=== PATIENT | female | born 1945 | race Caucasian/White ===

== ENCOUNTER 2017-01-13 04:04 | Inpatient (IN) ==
[2017-01-08 15:06] LABS: MANUAL DIFF NEEDED? NO
[2017-01-08 15:10] LABS: EOS% 2.7 % (0.0-10.0); HEMOGLOBIN 10.9 g/dL (12.0-16.0); LYMPH# 2.26 X1000 (1.2-3.4); LYMPH% 30.7 % (20.5-51.1); MCH 30.7 PG (27-31); MCHC 32.1 g/dL (33-37); MCV 95.8 FL (81-99); MONO# 0.76 X1000 (0.11-0.59); MONO% 10.3 % (1.7-9.3); MPV 8.4 FL (7.4-10.4); NEUT% 55.3 % (42.2-75.2); PLT 300 X1000 (130-400); RBC 3.55 XMIL (4.2-5.4)
[2017-01-08 15:46] LABS: AGAP 14; BUN 15 mg/dL (8-22); CALCIUM 8.4 mg/dL (8.8-10.2); CHLORIDE 99 mmol/L (98-107); COSMO 273; POTASSIUM 4.3 mmol/L (3.5-5.1); SODIUM 137 mmol/L (136-145); TCO2 24 mmol/L (25-35)
[2017-01-13] MEDS ORDERED: REGLAN ONE (05:41)
[2017-01-13] MEDS ORDERED: PEPCID ONE (05:41)
[2017-01-13] MEDS ORDERED: INVANZ 1 GM/NS 1 GM/50 ML IVPB ONE (05:42)
[2017-01-13] MEDS ORDERED: LR 1,000 ML ONE ×2 (05:42→10:23)
[2017-01-13] MEDS ORDERED: ENTEREG ONE (05:43)
[2017-01-13 08:14] LABS: URINE SOURCE CATH
[2017-01-13 08:18] LABS: BILIRUBIN URINE NEGATIVE (NEGATIVE); BLOOD URINE NEGATIVE (NEGATIVE); COLOR YELLOW; GLUCOSE URINE NEGATIVE (NEGATIVE); LEUKOCYTES URINE NEGATIVE (NEGATIVE); NITRITE URINE NEGATIVE (NEGATIVE); PH URINE 5.5; PROTEIN URINE NEGATIVE (NEGATIVE); SP GRAVITY URINE 1.015; TURBIDITY URINE HAZY (CLEAR); URINE MICRO REVIEW NEEDED? YES; UROBILINOGEN URINE NORMAL (NORMAL)
[2017-01-13 08:32] LABS: UR EPITHELIAL CELLS <10 /HPF (<10); URINE BACTERIA NEGATIVE /HPF; URINE RBC <10 /HPF (<10); URINE WBC <10 /HPF (<10)
[2017-01-13 08:57] LABS: URINE CASTS NONE SEEN
[2017-01-13] MEDS ORDERED: MORPHINE ONE ×2 (09:44→10:22)
[2017-01-13] MEDS ORDERED: DIPRIVAN 1% ONE (09:44)
[2017-01-13] MEDS: MORPHINE ONE ×2 (10:00→10:10)
[2017-01-13] MEDS ORDERED: D5 1/2 NS + KCL 20 MEQ 1,000 ML ONE (10:03)
[2017-01-13] MEDS ORDERED: TORADOL ONE (10:08)
[2017-01-13] MEDS ORDERED: QUELICIN (DOSE) ONE (10:23)
[2017-01-13] MEDS ORDERED: ZEMURON ONE (10:23)
[2017-01-13] MEDS ORDERED: XYLOCAINE-MPF 2% ONE (10:23)
[2017-01-13] MEDS ORDERED: ZOFRAN ONE (10:23)
[2017-01-13] MEDS ORDERED: DECADRON ONE (10:23)
[2017-01-13] MEDS ORDERED: NEOSTIGMINE ONE (10:23)
[2017-01-13] MEDS ORDERED: ROBINUL ONE (10:23)
[2017-01-13] MEDS ORDERED: OFIRMEV 1000 MG/ISOTONIC SOLN 1,000 MG/100 ML BOTTLE ONE (10:23)
[2017-01-13] MEDS ORDERED: ZOFRAN IV PRN (10:54)
[2017-01-13] MEDS ORDERED: MORPHINE IV PRN (10:54)
[2017-01-13] MEDS: D5 1/2 NS + KCL 20 MEQ 1,000 ML IV SCH ×2 (11:21→23:30)
[2017-01-13] MEDS ORDERED: PNEUMOVAX 23 IM ONE (11:30)
[2017-01-13] MEDS ORDERED: PRILOSEC PO PRN (11:45)
--- NOTE | 2017-01-13 12:58 | OPERATIVE NOTE ---
PROCEDURE DATE: 01/13/2017 PREOPERATIVE DIAGNOSIS: Colonic mass. POSTOPERATIVE DIAGNOSIS: Colonic mass. PRINCIPAL PROCEDURE: Open low anterior colon resection. SURGEON: Sammie John MD MARKETING PRODUCTION SPECIALIST: Jesus Gonzalez MD ANESTHESIA: General. ESTIMATED BLOOD LOSS: 100 mL. DRAINS: None. INDICATIONS: Ms Fatmata Garcia is a 71-year-old white female who has a history of ovarian cancer and has undergone surgery. She has known recurrence, has been treated by Татьяна Tobin, on p.o. tamoxifen without progression of disease. Most recently, she underwent a colonoscopy, which documented a near obstructing possible extrinsic mass at 40 cm from the anus. Resection was recommended. FINDINGS: She had a mass at about the mid sigmoid colon. The sigmoid colon was adhered to itself deep in the pelvis. We were able to mobilize it. We did take part of the proximal rectum and the sigmoid colon and performed an end-to-end EEA stapled anastomosis between the descending colon and the proximal rectum. We did not have to mobilize the splenic flexure. There was no tension on our anastomosis. There was no other evidence of disease intra-abdominally. DESCRIPTION OF PROCEDURE: The patient underwent a bowel prep prior to her presentation. On the day of surgery, she received IV Invanz. She took p.o. antibiotics with her bowel prep. She was taken to surgery, where she received general anesthesia, and was intubated. A Mobley catheter tube was placed. Her abdomen was prepped and draped within a sterile field and we used an Ioban on the skin. She had a previous midline incision and she also had mesh within this incision from previous ventral hernia repair. We excised the scar with a 10 blade scalpel. We then carefully entered the abdomen. We used a large wound protector. The patient was placed in Trendelenburg and we explored the abdomen and packed the small bowel and cecum out into the upper abdomen so that we could evaluate the pelvis. Her sigmoid colon was turned on itself and scarred to the pelvis and rectum. We had to take our time to mobilize the sigmoid colon and rectum out of the pelvis. We used the cautery for lot of this dissection. We began by mobilizing the sigmoid colon laterally and then we mobilized it anteriorly bringing the bladder up off of the rectum. We were able to carefully with adhesions and the cautery, transecting adhesions with cautery, we were able to bring the specimen up into our wound. We used the 45 mm in length blue load TA stapler to come across the proximal rectum. We then took the mesentery blood supply from distal to proximal, which included the sigmoid vessels. We took these vessels at their base. We chose a spot on the descending colon and we used a pursestring instrument to place a pursestring at the descending colon and transected the bowel with a Reed scissor. The specimen was removed from the field. We visualized the left ureter and preserved it. We used a medium or 27 mm EEA stapler. We placed the anvil in the descending colon and tied the pursestring around it. I went below, Dr. Gonzalez was intra-abdominally, and I placed the EEA into the rectal stump after we had cleaned off some of the fat around the staple line using cautery and we mated the anvil to the EEA stapler, brought the 2 together and fired the EEA stapler. We had 2 complete donuts. I then placed the rigid proctoscope into the rectum and blew air past our anastomosis while the pelvis was filled with warm irrigation and there was no evidence of leak. I put 2 stay stitches on either corner of our anastomosis. There was no tension on our anastomosis. The caliber of it was good and we felt the blood supply was good. There was no evidence of ongoing bleeding. We placed the bowel back in anatomically correct position. She had no greater omentum from her previous surgery. We chose to close the midline with a running #1 Prolene stitch because of the mesh that we cut through to open her abdomen. We closed the skin with a skin clip voice network engineer. Xeroform, followed by dry dressing was applied. Dr. Gonzalez was present throughout the case. He knows this family well and has been their surgeon in the past. His presence was necessary for exposure and also the EEA stapled anastomosis as described above. Plans are for her to go to the recovery room and then to the floor. I spoke with her family afterwards. cc: MD Татьяна Cordova MD Manish Arora, MD
[2017-01-13] MEDS: TORADOL IV SCH ×2 (15:23→20:39)
[2017-01-13] MEDS: PERIDEX MT SCH ×2 (15:23→20:38)
[2017-01-13] MEDS: OFIRMEV 1000 MG/ISOTONIC SOLN 1,000 MG/100 ML BOTTLE IV SCH ×2 (17:03→23:30)
[2017-01-13] MEDS: MULTAQ PO SCH (20:38)
[2017-01-13] MEDS: PRAVACHOL PO SCH (20:38)
[2017-01-13] MEDS: COREG PO SCH (20:38)
[2017-01-14] MEDS: TORADOL IV SCH ×3 (04:30→09:18)
[2017-01-14] MEDS: LOVENOX SUBQ SCH (05:53)
[2017-01-14] MEDS: SYNTHROID PO SCH ×2 (05:53→08:21)
[2017-01-14] MEDS: OFIRMEV 1000 MG/ISOTONIC SOLN 1,000 MG/100 ML BOTTLE IV SCH ×4 (05:53→22:25)
[2017-01-14] MEDS: MULTAQ PO SCH ×2 (08:30→20:14)
[2017-01-14] MEDS: COREG PO SCH ×3 (08:30→20:14)
[2017-01-14] MEDS: ENTEREG PO SCH ×2 (08:31→20:13)
[2017-01-14] MEDS: PERIDEX MT SCH ×2 (09:18→20:13)
[2017-01-14] MEDS: D5 1/2 NS + KCL 20 MEQ 1,000 ML IV SCH (12:51)
--- NOTE | 2017-01-14 16:05 | PROGRESS NOTE ---
DATE: 01/14/2017 SUBJECTIVE: Ms. Fatmata Garcia is now postop day 1 from an open low anterior colon resection for near obstruction of her colon. There is a question whether this is ovarian cancer or a colon cancer. She is doing quite well. She is awake, she has been up. Her abdomen is soft. She still has a dressing in place. We have given her clear liquids already. She still has a Mobley catheter tube in place. Hemodynamically, she is satisfactory. PLAN: We will keep her on clear liquids for now. She is getting IV fluids. We will discontinue her Mobley tomorrow and continue to increase her activity. cc: Sammie John MD
[2017-01-14] MEDS: NORCO-5 PO PRN (20:13)
[2017-01-14] MEDS: PRAVACHOL PO SCH (20:14)
[2017-01-15] MEDS: D5 1/2 NS + KCL 20 MEQ 1,000 ML IV SCH (01:39)
[2017-01-15] MEDS: OFIRMEV 1000 MG/ISOTONIC SOLN 1,000 MG/100 ML BOTTLE IV SCH ×4 (06:02→20:40)
[2017-01-15] MEDS: SYNTHROID PO SCH (06:03)
[2017-01-15] MEDS: NORCO-5 PO PRN ×2 (06:03→20:40)
[2017-01-15] MEDS: LOVENOX SUBQ SCH (06:03)
[2017-01-15] MEDS: COREG PO SCH ×2 (08:45→20:40)
[2017-01-15] MEDS: ENTEREG PO SCH (08:45)
[2017-01-15] MEDS: MULTAQ PO SCH ×2 (08:45→20:40)
[2017-01-15] MEDS: PERIDEX MT SCH ×2 (08:55→20:40)
--- NOTE | 2017-01-15 11:57 | PROGRESS NOTE ---
DATE: 01/15/2017 Ms. Garcia is now postop day 2 from a low anterior colon resection. She is doing quite well. She is sitting up in a chair. She is tolerating liquids. We removed her Mobley catheter tube this morning. Her incision remains dressed. She has even had a bowel movement. We will advance her diet to a regular diet. We will stop Entereg. We will continue IV fluids. cc: Smamie John MD
[2017-01-15] MEDS: PRAVACHOL PO SCH (20:40)
[2017-01-16] MEDS: OFIRMEV 1000 MG/ISOTONIC SOLN 1,000 MG/100 ML BOTTLE IV SCH ×2 (03:28→06:10)
[2017-01-16] MEDS: D5 1/2 NS + KCL 20 MEQ 1,000 ML IV SCH (03:40)
[2017-01-16] MEDS: LOVENOX SUBQ SCH (06:10)
[2017-01-16] MEDS: SYNTHROID PO SCH (06:10)
[2017-01-16 07:35] VITALS: BP 132/58
[2017-01-16] MEDS: COREG PO SCH (09:47)
[2017-01-16] MEDS: PERIDEX MT SCH (09:47)
[2017-01-16] MEDS: MULTAQ PO SCH (09:47)
--- NOTE | 2017-01-16 11:51 | DISCHARGE SUMMARY ---
ADMISSION DATE: 01/13/2017 DISCHARGE DATE: 01/16/2017 ADMITTING DIAGNOSIS: Near obstructing lesion sigmoid colon. POSTOPERATIVE DIAGNOSIS: Sigmoid colon mass. PRINCIPAL PROCEDURE: Open low anterior colon resection on 01/13/2017. DISCHARGE DISABILITIES: Full. DISCHARGE DISPOSITION: She will return to see us in our outpatient offices next week. DISCHARGE DIET: Regular. DISCHARGE MEDICATIONS: She is to return to her home medications which includes Xarelto. HOSPITAL COURSE: Ms. Fatmata Garcia is a 71-year-old white female who has known ovarian cancer and has been operated on in the past for this disease. She has been followed by a Dr. Татьяна Tobin. Most recently, she underwent a colonoscopy per Dr. Leggett which documented a near obstructing lesion in her sigmoid colon and diverticulosis. We were asked to evaluate her for colon resection. FINDINGS: She had a colonic mass in the distal sigmoid colon and she also had her sigmoid and rectum kink on itself and scarred into the pelvis. She had previous LDR NURSE oncology surgery for ovarian cancer which included removal of her omentum and also a lymph node dissection along the distal aorta. We performed a low anterior colon resection with an end-to-end stapled anastomosis between the descending colon and the rectum. DESCRIPTION OF PROCEDURE: The patient underwent a bowel prep prior to her presentation on the day of surgery. The bowel prep included oral antibiotics but she also got IV Invanz prior to surgery. She went to the operating room, where she was placed in [facility]. After receiving general anesthesia. We did place a Mobley catheter tube. Her abdomen was prepped and draped within a sterile field. We used an Ioban on the skin. We made an incision in the previous scar and we felt the operation went well. We did perform an EEA stapled anastomosis between the descending colon and the rectum. No drains were left. We did not use an NG tube and after surgery she went to the recovery room with Mobley catheter tube in place. She was then admitted to the [address] [place] [address]. We were able to quickly start her on clear liquids. On postop day 2, in the morning, we removed her Mobley catheter tube. She was able to void without problems. She was able to move around in her room. Her lower midline incision was intact. Her abdomen was soft. She was tolerating a diet and it was felt on postop day 3, it was safe to discharge her home under the care of her with followup in our outpatient offices next week. At discharge, her heart rate was 5,2 blood pressure 132/58. O2 saturation 100%. She was afebrile on no antibiotics. We will allow her to restart her Xarelto at home and she knows to contact us with any problems. cc: Sammie John MD
== END 2017-01-16 11:15 | disposition home or self-care (01) ==
LOC: SURHOLD 04:04 → 4N 09:54
PROVIDERS: ADMIT Surgery; ATTEND Surgery